=== PATIENT | male | born 1950 | race Caucasian/White ===

== ENCOUNTER → 2022-07-07 | Outpatient (CLI) | payer MEDICARE ==
--- NOTE | 2022-07-07 17:11 | US ---
EXAMINATION TYPE: US venous doppler duplex LE RT DATE OF EXAM: 07/07/2022 4:59 PM COMPARISON: NONE CLINICAL HISTORY: R22.41 swelling.mass.lum M79.661 pain rt lower leg. right leg redness and swelling SIDE PERFORMED: Right TECHNIQUE: The lower extremity deep venous system is examined utilizing real time linear array sonog supa with graded compression, doppler sonography and color-flow sonography. VESSELS IMAGED: Common Femoral Vein Deep Femoral Vein Greater Saphenous Vein * Femoral Vein Popliteal Vein Small Saphenous Vein * Proximal Calf Veins (* superficial vessels) Right Leg: Negative for DVT results called to [place] at time of exam Grayscale, color doppler, spectral doppler imaging performed of the deep veins of the lower extremiti es. There is normal flow, compressibility, vascular waveforms. No definitive mass along the visualized. IMPRESSION: 1. No evidence of deep vein thrombosis of the right lower extremity. 2. No mass or lump visualized.
== END | disposition home or self-care (01) ==
LOC: RADUSWWP 16:46
PROVIDERS: ATTEND Internal Medicine Hematology & Oncology
DX: M79.661 Pain in right lower leg (principal); R22.41 Localized swelling, mass and lump, right lower limb

== ENCOUNTER → 2022-10-22 | Outpatient (CLI) | payer MEDICARE ==
--- NOTE | 2022-10-23 11:19 | PE ---
EXAMINATION TYPE: PET CT fusion skull to thigh DATE OF EXAM: 10/22/2022 CLINICAL INDICATION:Male, 71 years old with history of C61 prostate ca; TECHNIQUE: Following the intravenous administration of 12.32 mCi of F-18 FDG, whole body images are performed from the skull base to the midthigh. Images are reviewed on the computer in the coronal, axial, and sagittal planes. Reconstructed rotating images are created on independent workstation and reviewed on the computer. A non-contrast CT is performed in conjunction with the PET scan. Glucose level 89 mg/dL COMPARISON: CT 05/12/2022, PET/CT 05/27/2022, FINDINGS: Mediastinal SUV mean is 1.3. Hepatic parenchyma SUV mean is 2.0. SKULL BASE AND NECK: Positive response to therapy with no increased FDG activity within the neck. Ly mph nodes have decreased in size and/or have resolved completely. Examples include: * Right low neck lymph node previously 15 mm in short axis now measuring 4 mm. * Left supraclavicular lymph node measuring 18 mm in short axis now measuring 9 mm. CHEST, MEDIASTINUM, AND HILAR REGION: Resolution of prior FDG activity of the enlarged mediastinal lymphadenopathy and prior scan. Evaluati on in the prevascular space is slightly limited without IV contrast. The lymph nodes on the left supe rior aspect have resolved in the prevascular space 12 T1 surround the superior vena cava may remain b ut without increased FDG activity. Measuring 15 mm in short axis, previously 29 mm. No pulmonary opacities seen on today's exam. ABDOMEN AND PELVIS: Heterogenous appearance to the right hepatic dome. Multiple low attenuating areas are seen throughout the liver in this area with septations. No discernible increased FDG activity above background level s. It is noted that it had elevated activity on prior PET max SUV 8.3. OSSEOUS STRUCTURES: Focal areas of FDG activity have decreased on today's exam without focal FDG acti vity visualized. There is somewhat diffuse mild FDG activity throughout the osseous structures compat ible with colony stimulating factor medicine use. Scattered sclerotic areas are seen throughout the o sseous structures which are new and favored to represent posttreatment changes. These are innumerable throughout the all the osseous structures including the skull and extremities. OTHER CT: Atherosclerosis of the intracranial vasculature as well as the arterial vasculature. There is moderate bilateral pleural effusions. There is associated atelectasis changes with effusions. Left fat-containing inguinal hernia. Left renal simple appearing cyst. The bladder is incompletely disten ded. Trace free fluid in the pelvis. Small fat-containing umbilical hernia. IMPRESSION: 1. Positive response to therapy with decrease in size and FDG activity of the low neck lymph nodes, mediastinal lymph nodes, and right hepatic mass. 2. Diffuse sclerotic lesions throughout the osseous structures which have increased in size and numb er from prior and are likely secondary to treatment changes given lack of FDG activity. Attention on follow-up imaging. 3. Mild diffuse osseous uptake without focal FDG avid lesions seen on prior which is positive posttr eatment changes with suspected colony stimulating factor medicine use. 4. Resolution of prior pulmonary findings.
== END | disposition home or self-care (01) ==
LOC: RADPETMAIN 12:16
PROVIDERS: ATTEND Internal Medicine Hematology & Oncology
DX: C61 Malignant neoplasm of prostate (principal); R16.0 Hepatomegaly, not elsewhere classified
CPT/HCPCS: 78815; A9552